=== PATIENT | male | born 1980 | race African-American/Black ===

== ENCOUNTER 2017-01-15 19:46 | Emergency (ER) | payer MEDICAID, MEDICARE ==
[2017-01-15] MEDS ORDERED: Bacitracin Zinc 1 Packet ONE (21:40)
== END 2017-01-15 21:40 | disposition home or self-care (01) ==
LOC: ERS 19:46
DX: L03.011 Cellulitis of right finger (principal); F17.210 Nicotine dependence, cigarettes, uncomplicated
CPT/HCPCS: 99283

== ENCOUNTER 2017-08-10 20:13 | Observation (INO) | payer MEDICARE ==
[2017-08-10 21:23] LABS: Bilirubin Negative (Negative); Blood, Urine Negative (Negative); Clarity CLEAR (Clear); Glucose, Urine (Dipstick) >=1000 mg/dL (Negative); Leukocyte Small (Negative); Nitrite Negative (Negative); Protein, Urine (Dipstick) Negative (Neg-Trace); Specific Gravity, Urine 1.027 (1.002-1.036); pH, Urine 5.5 (5.0-9.0)
[2017-08-10 21:36] LABS: Bacteria/HPF Rare-Few HPF (None Seen); RBC/HPF 0-3 HPF (0-3); Squamous Epithelial 0-3 HPF (0-3)
[2017-08-10 21:37] LABS: Hyaline Casts/LPF NONE SEEN LPF (0-3 Hyaline)
[2017-08-11 00:06] LABS: #Basophils 0.1 thou/uL (0.0-0.2); #Eosinphils 0.4 thou/uL (0.0-0.7); #Lymphocytes 2.2 thou/uL (1.20-3.40); #Monocytes 0.7 thou/uL (0.11-0.59); #Neutrophils 8.2 thou/uL (1.40-6.50); %Basophils 0.7 % (0.0-1.0); %Eosinophils 3.4 % (0.0-10.0); %Lymphocytes 19.1 % (21.0-51.0); %Monocytes 6.3 % (0.0-10.0); %Neutrophils 70.6 % (42.0-75.0); Hemoglobin 13.9 g/dL (14.0-18.0); Mean Corpuscular HGB CONC 35.1 g/dL (32.0-36.0); Mean Corpuscular Hemoglobin 30.5 pg (27.0-31.0); Mean Corpuscular Volume 86.9 fl (80.0-94.0); Mean Platelet Volume 8.1 fL (7.4-10.4); Platelet Count 278 thou/uL (130-400); RBC Distribution Width 12.6 % (11.5-14.5); Red Blood Cell (RBC) Count 4.55 mill/uL (4.70-6.10); White Blood Cell (WBC) Count 11.5 thou/uL (4.8-10.8)
[2017-08-11 00:45] LABS: ALT (SGPT) 18 U/L (8-55); AST (SGOT) 17 U/L (5-34); Albumin 4.3 g/dL (3.5-5.0); Alkaline Phosphatase 105 U/L (40-150); Anion Gap 13 mmol/L (10-20); BUN (Urea Nitrogen) 16 mg/dL (8.9-20.6); Bilirubin, Total 0.3 mg/dL (0.2-1.2); Calc. Creatinine Clearance 0 mL/min (70-130); Calcium 9.8 mg/dL (7.8-10.44); Carbon Dioxide 23 mmol/L (22-29); Chloride 94 mmol/L (98-107); Estimated GFR-MDRD 52; Globulin 4.4 g/dL (2.4-3.5); Glucose 755 mg/dL (70-105); Potassium 4.9 mmol/L (3.5-5.1); Protein, Total 8.7 g/dL (6.0-8.3); Sodium 125 mmol/L (136-145)
[2017-08-11] MEDS ORDERED: Insulin Regular 300 UNITS/3 ML VIAL ONE (00:56)
[2017-08-11] MEDS ORDERED: Clindamycin/D5W 900 mg/50 ml Premix Bag ONE (01:31)
--- NOTE | 2017-08-11 02:00 | PDOC.FPRHP ---
- History of Present Illness Chief Complaint: Armpit Pain History of Present Illness: 37 yo Male came in with chief complaint of L. arm infection. Pt also reported having some [place] of growth underneath his foreskin. He is uncircumcised. When came in labs were checked and found to have blood glucose of 700. Pt reports the last couple of months having to pee a lot more frequently. He also has noticed weight loss. Infection of his foreskin has been happening for the last couple weeks. Went to the [facility] on Monday where they px clotrimizole but he never got it filled. The last week he has developed a painful bump underneath his left armpit. Denies any chest pain or SOB. Denies any other recent illness or fever or chills. Denies any N/v/d/c. - Allergies/Adverse Reactions Allergies Allergy/AdvReac Type Severity Reaction Status Date / Time No Known Allergies Allergy Verified 08/11/17 02:34 - Home Medications Medication Instructions Recorded Confirmed Type No Known [No Known] 08/11/17 08/11/17 History - History PMHx: None PSHx: None FHx: Mom: Diabetes Social: 1ppd for 20 years, Occasional Alcohol use- 4 beers at a time, No illicit drug use - Review of Systems General: reports: weight/appetite/sleep changes (Noticed weight loss last few months). denies: fever/chills, night sweats, fatigue Eyes: denies: eye pain, vision changes ENT: denies: nasal congestion, rhinorrhea Respiratory: denies: cough, congestion, shortness of breath, exercise intolerance Cardiovascular: denies: chest pain, palpitation, edema, paroxysmal nocturnal dyspnea, orthopnea, other Gastrointestinal: denies: nausea, vomiting, diarrhea, constipation, abdominal pain, GI bleeding Genitourinary: reports: other (Has increased episodes of going to bathroom. Fungal material noted underneath foreskin. Irritating and hurts. No penile discharge noted). denies: incontinence, dysuria, polyuria, discharge Skin: reports: other (Has small lump under armpit painful.). denies: rashes, lesions, jaundice, itching Musculoskeletal: denies: pain, tenderness, stiffness, swelling, arthritis/ arthralgias Neurological: reports: numbness (reports some numbness in his hands and feet). denies: syncope, seizure, weakness Psychological: denies: anxiety, depression - Vital signs BP: [130/69] HR: [75] RR: [16] Tmax: [98.8] Pox: [97]% on [RA] Wt: [119 kg] - Physical Exam Constitutional: NAD, awake, alert and oriented, well developed HEENT: normocephalic and atraumatic, EOMI, conjunctiva clear, no scleral icterus , TM's clear and intact, grossly normal hearing, normal nasal mucosa -HEENT: mucous membranes mildly dry. Neck: supple, trachea midline, no LAD, no JVD Chest: no-tender to palpation, no lesions Heart: RRR, normal S1/S2, no murmurs/rubs/gallops, pulses present, no edema Lungs: CTAB, no respiratory distress, good air movement, no rales/rhonchi, no wheezing Abdomen: soft, non-tender, bowel sounds present, no masses/distention, no hernias Musculoskeletal: normal structure, normal tone, ROM grossly normal Neurological: no focal deficit, normal sensation -Skin: White fungal material noted underneath foreskin. Unable to retract head of penis from foreskin due to infection. Small painfull bump noted under L. armpit. No head noted. No erythema noted. Heme/Lymphatic: no unusual bruising or bleeding, no purpura, no petechia Psychiatric: normal mood and affect, good judgment and insight, intact recent and remote memory FMR H&P: Results - Labs Result Diagrams: 08/10/17 00:00 08/11/17 09:09 Lab results: WBC 11.5 thou/uL (4.8-10.8) H 08/10/17 00:00 Hgb 13.9 g/dL (14.0-18.0) L 08/10/17 00:00 Hct 39.6 % (42.0-52.0) L 08/10/17 00:00 MCV 86.9 fl (80.0-94.0) 08/10/17 00:00 Plt Count 278 thou/uL (130-400) 08/10/17 00:00 Neutrophils % 70.6 % (42.0-75.0) 08/10/17 00:00 Sodium 125 mmol/L (136-145) L 08/10/17 00:00 Potassium 4.9 mmol/L (3.5-5.1) 08/10/17 00:00 Chloride 94 mmol/L (98-107) L 08/10/17 00:00 Carbon Dioxide 23 mmol/L (22-29) 08/10/17 00:00 BUN 16 mg/dL (8.9-20.6) 08/10/17 00:00 Creatinine 1.80 mg/dL (0.6-1.3) H 08/10/17 00:00 Glucose 755 mg/dL (70-105) H* 08/10/17 00:00 Calcium 9.8 mg/dL (7.8-10.44) 08/10/17 00:00 Total Bilirubin 0.3 mg/dL (0.2-1.2) 08/10/17 00:00 AST 17 U/L (5-34) 08/10/17 00:00 ALT 18 U/L (8-55) 08/10/17 00:00 Alkaline Phosphatase 105 U/L (40-150) 08/10/17 00:00 Serum Total Protein 8.7 g/dL (6.0-8.3) H 08/10/17 00:00 Albumin 4.3 g/dL (3.5-5.0) 08/10/17 00:00 Urine Ketones Negative mg/dL (Negative) 08/10/17 21:17 Urine Blood Negative (Negative) 08/10/17 21:17 Urine Nitrite Negative (Negative) 08/10/17 21:17 Ur Leukocyte Esterase Small (Negative) H 08/10/17 21:17 Urine RBC 0-3 HPF (0-3) 08/10/17 21:17 Urine WBC 4-6 HPF (0-3) H 08/10/17 21:17 Ur Squamous Epith Cells 0-3 HPF (0-3) 08/10/17 21:17 Urine Bacteria Rare-Few HPF (None Seen) 08/10/17 21:17 FMR H&P: A/P - Problem List (1) Diabetes Current Visit: Yes Status: Acute Code(s): E11.9 - TYPE 2 DIABETES MELLITUS WITHOUT COMPLICATIONS Qualifiers: Diabetes mellitus type: type 2 Diabetes mellitus long term acute care registered nurse insulin use: without long term acute care registered nurse use Diabetes mellitus complication status: with hypoglycemia Diabetes mellitus complication detail: without coma Qualified Code(s): E11.649 - Type 2 diabetes mellitus with hypoglycemia without coma (2) CHANTAL (acute kidney injury) Current Visit: Yes Status: Acute Code(s): N17.9 - ACUTE KIDNEY FAILURE, UNSPECIFIED (3) Elevated BP without diagnosis of hypertension Current Visit: Yes Status: Acute Code(s): R03.0 - ELEVATED BLOOD-PRESSURE READING, W/O DIAGNOSIS OF HTN (4) Balanitis Current Visit: Yes Status: Acute Code(s): N48.1 - BALANITIS (5) Folliculitis Current Visit: Yes Status: Acute Code(s): L73.9 - FOLLICULAR DISORDER, UNSPECIFIED - Plan New onset DMII -Sugar elevated to 700's without signs of DKA. Given 10 units insulin in ER. -Accuchecks Q4hrs. Placed on Mild SSI. Started on Metformin 500 mg BID. -Rx Specialist consulted for education. -HgbA1c pending. -CC diet -Will need close f/u outpatient CHANTAL -Likely related to problem above. Reports being dehydrated -NS@150 mls/hr. -Daily BMP Folliculitis of Armpit -Painful small bump under armpit. No area of drainage noted. -Clindamycin for infection Balanitis -Fungal infection noted under penis -Clotrimizole cream FMR H&P: Upper Level - Pertinent history 37 yo AAM p/w L axillary pain and swelling. Over the last week, patient has developed a painful bump underneath his left armpit. No F/C. Also complaining of difficulty retracting his foreskin. On arrival in the ER, his BG was found to be >700. Reports frequent urination, thirst and weight loss over the last month or so. Issue with his foreskin has been going on for the past couple of weeks. Associated with white material underneath the foreskin. Pt to the [facility] ER on Monday where they prescribed him clotrimizole cream, but he never got it filled. Patient's family states that he has a poor diet and has smoked 1 PPD for around 20 years. He has a strong family history of diabetes as well. - Pertinent findings PE Gen: AAOx3, NAD, obese CV: RRR, no m/g/r Lungs: CTAB Abd: increased waist circumference, non-tender, +BS : partial phimosis with whitish debris noted under foreskin Ext: no c/c/e; subjective decreased sensation plantar aspects of b/l feet - Plan Date/Time: 08/11/17 2118 I, Tk Rushing MD, have evaluated this patient and agree with findings/plan as outlined by phd internship resident. Pertinent changes/additions are listed here. 37 yo AAM with: 1) New onset T2DM w/ hyperglycemia: place in observation to medical. No evidence of DKA or HHS. S/p 10 units regular insulin in ER. Start metformin and SSI. Diabetic education. A1c pending. Carb control diet with accuchecks q4h for now. Will need to establish care with PCP for close outpatient management. 2) CHANTAL: likely 2/2 dehydration from osmotic effect of hyperglycemia. Start IVF and recheck BMP in AM. 3) L axillary folliculitis barbae: cont. clindamycin 4) Balanitis: clotrimazole cream application Attending Addendum - Attending Addendum Date/Time: 08/11/17 0351 I personally evaluated the patient and discussed the management with Dr. Vela. I agree with the History, Examination, Assessment and Plan documented above with any addition or exceptions noted below. The patient presents with newly diagnosed diabetes with glucose over 700. He also has folliculitis and ballanitis. Will treat with antibiotics, fungal cream. Start metformin. Diabetic diet counseling, will teach how to check sugars. Cover with sliding scale insulin.
[2017-08-11 02:16] LABS: Hemoglobin A1c 10.3 % (4.0-6.0)
[2017-08-11] MEDS ORDERED: Dextrose 50% Abboject 50 ML SYRINGE SLOW IVP PRN (02:32)
[2017-08-11] MEDS ORDERED: Dextrose 5% in Water 1,000 ML IV PRN (02:32)
[2017-08-11] MEDS ORDERED: Ondansetron HCl/PF 4 MG/2 ML Vial IVP PRN ×2 (02:32)
[2017-08-11] MEDS ORDERED: Acetaminophen 650 MG Suppository PR PRN (02:32)
[2017-08-11] MEDS ORDERED: Ondansetron ODT 4 MG TAB SL PRN (02:32)
[2017-08-11] MEDS ORDERED: Ondansetron ODT 4 MG TAB PO PRN (02:32)
[2017-08-11] MEDS ORDERED: Acetaminophen 325 MG TAB PO PRN ×2 (02:32)
[2017-08-11] MEDS: Sodium Chloride 0.9% 1,000 ML IV SCH ×3 (03:20→17:16)
[2017-08-11 04:29] VITALS: BMI 37.0
[2017-08-11] MEDS: traMADol HCl 50 MG TAB PO PRN ×2 (05:10→21:05)
[2017-08-11] MEDS: Clindamycin 150 MG CAP PO SCH ×3 (05:10→17:14)
[2017-08-11] MEDS: HumaLOG 300 UNITS/3 ML VIAL SC PRN ×4 (06:50→21:12)
[2017-08-11] MEDS ORDERED: Clindamycin/D5W 900 MG in Premix Bag 1 BAG IVPB SCH (08:00)
[2017-08-11] MEDS: metFORMIN 500 MG TAB PO SCH ×2 (08:53→17:14)
[2017-08-11] MEDS ORDERED: Clotrimazole 1% Cream 15 GM TUBE TOP SCH (09:00)
[2017-08-11 09:58] LABS: Anion Gap 10 mmol/L (10-20); BUN (Urea Nitrogen) 11 mg/dL (8.9-20.6); Calc. Creatinine Clearance 156 mL/min (70-130); Calcium 9.4 mg/dL (7.8-10.44); Carbon Dioxide 23 mmol/L (22-29); Chloride 105 mmol/L (98-107); Estimated GFR-MDRD 87; Glucose 319 mg/dL (70-105); Potassium 4.1 mmol/L (3.5-5.1); Sodium 134 mmol/L (136-145)
[2017-08-11] MEDS: Clotrimazole 1 % Cream 30 GM TUBE TOP SCH (10:32)
[2017-08-12] MEDS: Clindamycin 150 MG CAP PO SCH ×2 (00:32→05:47)
[2017-08-12] MEDS: Sodium Chloride 0.9% 1,000 ML IV SCH ×2 (00:34→05:10)
[2017-08-12] MEDS ORDERED: Lidocaine 2% Jelly 5 ML TUBE TOP PRN (01:26)
[2017-08-12] MEDS ORDERED: Ketorolac Tromethamine 30 MG/ML VIAL IVP SCH (01:30)
[2017-08-12] MEDS: HumaLOG 300 UNITS/3 ML VIAL SC PRN (02:44)
--- NOTE | 2017-08-12 07:31 | PDOC.FM ---
- Subjective Subjective: Patient reports that he is doing well this AM. He is tolerating PO well. He denies any N/V. - Objective MAR Reviewed: Yes Vital Signs & Weight: Vital Signs (12 hours) Temp Pulse Resp BP BP Pulse Ox 08/12/17 04:00 98.1 F 62 18 101/62 98 08/12/17 00:00 98.2 F 71 18 112/69 98 08/11/17 20:00 98.3 F 83 18 115/66 98 08/11/17 19:59 98.3 F 81 18 115/66 98 Weight Admit Weight 124.029 kg Weight 124.029 kg I&O: 08/11/17 08/12/17 08/13/17 06:59 06:59 06:59 Intake Total 150 997 Output Total 325 2100 Balance -175 -1103 Result Diagrams: 08/10/17 00:00 08/11/17 09:09 <Lula Lam - Last Filed: 08/12/17 07:29> - Objective Vital Signs & Weight: Vital Signs (12 hours) Temp Pulse Resp BP Pulse Ox 08/12/17 07:33 98.4 F 67 16 118/82 98 08/12/17 04:00 98.1 F 62 18 101/62 98 08/12/17 00:00 98.2 F 71 18 112/69 98 Weight Admit Weight 273 lb 7 oz Weight 273 lb 7 oz I&O: 08/11/17 08/12/17 08/13/17 06:59 06:59 06:59 Intake Total 150 997 Output Total 325 2625 Balance -175 -1621 Result Diagrams: 08/10/17 00:00 08/11/17 09:09 <David Pete - Last Filed: 08/12/17 10:35> Phys Exam - Physical Examination Constitutional: NAD HEENT: moist MMs Respiratory: no wheezing, no rales, no rhonchi, clear to auscultation bilateral Cardiovascular: RRR, no significant murmur, no rub Gastrointestinal: soft, non-tender, no distention, positive bowel sounds Musculoskeletal: no edema, pulses present Neurological: non-focal, moves all 4 limbs Psychiatric: normal affect, A&O x 3 Deviation from normal: L axilla erythema and tenderness <Lula Lam - Last Filed: 08/12/17 07:29> Dx/Plan (1) Diabetes Code(s): E11.9 - TYPE 2 DIABETES MELLITUS WITHOUT COMPLICATIONS Status: Acute QualifierTitle: Diabetes mellitus type: type 2 Diabetes mellitus nursing home insulin use: without oil heaterman use Diabetes mellitus complication status : with hyperglycemia Qualified Code(s): E11.65 - Type 2 diabetes mellitus with hyperglycemia (2) CHANTAL (acute kidney injury) Code(s): N17.9 - ACUTE KIDNEY FAILURE, UNSPECIFIED Status: Acute (3) Balanitis Code(s): N48.1 - BALANITIS Status: Acute (4) Folliculitis Code(s): L73.9 - FOLLICULAR DISORDER, UNSPECIFIED Status: Acute (5) Elevated BP without diagnosis of hypertension Code(s): R03.0 - ELEVATED BLOOD-PRESSURE READING, W/O DIAGNOSIS OF HTN Status : Acute - Plan Plan: New onset DMII Blood Sugar elevated to 700's without signs of DKA. Given 10 units insulin in ER. HgA1c found to be 10.3. Glucose has remained elevated to the 200s-300s, with SSI and metformin. The difficulty in controlling the blood glucose could be due to the folliculitis. -Accuchecks Q4hrs. Placed on Mild SSI. Started on Metformin 500 mg BID. -Talent Assistant consulted for education. -CC diet -Will need close f/u outpatient -Pt has already bought himself a glucometer, lancets, and test strips CHANTAL -Likely related to problem above. Reports being dehydrated. Has improved with fluids -NS@150 mls/hr. -Daily BMP Folliculitis of L Axilla Painful small bump under axilla. No area of drainage noted. -Clindamycin for infection Balanitis Fungal infection noted under penis -Clotrimizole cream <Lula Lam - Last Filed: 08/12/17 07:29> Attending Addendum - Attending Addendum Date/Time: 08/12/17 0486 I personally evaluated the patient and discussed the management with Dr. Lam I agree with the History, Examination, Assessment and Plan documented above with any addition or exceptions noted below. The patient's blood sugars have improved from admission. He has received diabetes education and will continue to monitor his glucose outpatient. We will discharge him today on metformin with plans to titrate it up to 1000mg BID. He will arrange an outpatient f/u appointment at [facility] within one week. We will continue abx for L axilla folliculitis. <David Pete - Last Filed: 08/12/17 10:35>
[2017-08-12 07:36] VITALS: BP 118/82; TEMP 98.4
[2017-08-12] MEDS: Clotrimazole 1 % Cream 30 GM TUBE TOP SCH (10:55)
[2017-08-12] MEDS: metFORMIN 500 MG TAB PO SCH (10:55)
--- NOTE | 2017-08-13 20:01 | DIS-2 ---
DATE OF ADMISSION: 08/11/2017 DATE OF DISCHARGE: 08/12/2017 ADMITTING RESIDENT: Ty Vela M.D. DISCHARGE RESIDENT: Lula Lam M.D. ADMITTING ATTENDING: Bruna Walker M.D. DISCHARGE ATTENDING: David Pete M.D. CONSULTATIONS: None. PROCEDURES: None. PRIMARY DIAGNOSES: 1. New onset uncontrolled diabetes type 2. 2. Left axilla folliculitis. 3. Acute kidney injury. 4. Balanitis. 5. Elevated blood pressure without diagnosis of hypertension. DISCHARGE MEDICATIONS: 1. Metformin 500 mg p.o. b.i.d. with meals with instructions to titrate up to 1000 mg p.o. b.i.d. wi meals, within the next few weeks. 2. Clotrimazole 1% cream 1 gram topical daily. 3. Clindamycin 300 mg p.o. q.6. for 6 days. DISCONTINUED MEDICATIONS: None. HISTORY OF PRESENT ILLNESS AND HOSPITAL COURSE: This is a 37-year-old male with no known past medica l history who presented due to left arm and hip pain. The patient was found to have a blood sugar of 755 and hemoglobin A1c of 10.3. The patient had no known diagnosis of diabetes at this time. The p atient also had an acute kidney injury with an initial creatinine of 1.8. The patient was treated wi 10 units of insulin in the ER and the blood sugar improved to the 300s. The patient was started o n metformin and sliding scale insulin was used throughout his hospitalization. The patient was also given IV fluids to help with the acute kidney injury. The patient's creatinine improved to 1.14. Th e patient also was found to have a balanitis that was treated with clotrimazole cream and a left axil la folliculitis that was treated with clindamycin. The patient was given instructions as far as how to check his blood sugar and was asked to keep the log of his fasting blood glucoses to take to his n ext doctor's appointment. The patient was agreeable to establishing at [facility] for his primary care moving forward. The patient was also given the opportunity to discuss dietitian good dietary habits for diabetes. The patient was motivated to make changes in his life and had already purchased a glucometer, lancets and test strips before he had even been discharged f rom the hospital. DISPOSITION: Stable. DISCHARGE INSTRUCTIONS: 1. Location: Home. 2. Diet: Diabetic. 3. Activity: As tolerated. 4. Follow up with [facility] within 1 week.
[2017-08-15 11:26] LABS: CO2 Tension (PvCO2) 40.4 mmHg (41.0-51.0); O2 Tension (PvO2) 41.4 mmHg (35.0-45.0); pH (Venous) 7.383 (7.35-7.45); vO2 Saturation-calc 75.9 % (94-98)
[2017-08-15 11:27] LABS: Calcium, Ionized 1.03 mmol/L (1.12-1.32); Potassium 5.2 mmol/L (3.4-4.7); T. Carbon Dioxide 25.3 mmol/L (1.0-85.0)
== END 2017-08-12 11:52 | disposition home or self-care (01) ==
LOC: ERS 20:13 → T4-A 08-11 02:20
PROVIDERS: ADMIT Family Medicine; ATTEND Family Medicine
DX: L73.9 Follicular disorder, unspecified (principal); N17.9 Acute kidney failure, unspecified; E11.9 Type 2 diabetes mellitus without complications; N48.1 Balanitis; R03.0 Elevated blood-pressure reading, without diagnosis of hypertension
CPT/HCPCS: 80048; 80053; 82010; 82330; 82435; 82803; 82962 ×2; 83036; 84132; 85025; 87040; 87086; 93005; 96361 ×3; 96365; 96375 ×2; 99285; G0378; 36415; 36416; 81003; 81015; A4216; J1815; J1885; J3490

== ENCOUNTER 2018-05-20 21:17 | Emergency (ER) | payer MEDICARE, MEDICAID ==
[2018-05-20 22:13] LABS: #Basophils 0.1 thou/uL (0.0-0.2); #Eosinphils 0.4 thou/uL (0.0-0.7); #Monocytes 1.1 thou/uL (0.11-0.59); #Neutrophils 8.5 thou/uL (1.40-6.50); %Basophils 0.6 % (0.0-1.0); %Eosinophils 3.5 % (0.0-10.0); %Lymphocytes 16.7 % (21.0-51.0); %Monocytes 9.1 % (0.0-10.0); %Neutrophils 70.2 % (42.0-75.0); Hemoglobin 13.6 g/dL (14.0-18.0); Mean Corpuscular HGB CONC 34.3 g/dL (32.0-36.0); Mean Corpuscular Hemoglobin 30.3 pg (27.0-31.0); Mean Corpuscular Volume 88.1 fL (78.0-98.0); Mean Platelet Volume 7.4 fL (7.4-10.4); Platelet Count 278 thou/uL (130-400); RBC Distribution Width 12.5 % (11.5-14.5); White Blood Cell (WBC) Count 12.1 thou/uL (4.8-10.8)
[2018-05-20 22:29] LABS: Bilirubin Negative (Negative); Blood, Urine Negative (Negative); Clarity CLEAR (Clear); Glucose, Urine (Dipstick) Negative (Negative); Leukocyte Trace (Negative); Nitrite Negative (Negative); Protein, Urine (Dipstick) Negative (Neg-Trace); Specific Gravity, Urine 1.014 (1.002-1.036); pH, Urine 6.5 (5.0-9.0)
[2018-05-20 22:30] LABS: Bacteria/HPF None Seen HPF (None Seen); Hyaline Casts/LPF 0-3 HYALINE CAST LPF (0-3 Hyaline); RBC/HPF 0-3 HPF (0-3); Squamous Epithelial 0-3 HPF (0-3); WBC/HPF 0-3 HPF (0-3)
[2018-05-20 22:34] LABS: ALT (SGPT) 14 U/L (8-55); AST (SGOT) 12 U/L (5-34); Albumin 4.3 g/dL (3.5-5.0); Alkaline Phosphatase 67 U/L (40-150); Anion Gap 14 mmol/L (10-20); BUN (Urea Nitrogen) 16 mg/dL (8.9-20.6); Bilirubin, Total 0.4 mg/dL (0.2-1.2); Calc. Creatinine Clearance 0 mL/min (70-130); Carbon Dioxide 21 mmol/L (22-29); Chloride 110 mmol/L (98-107); Estimated GFR-MDRD 58; Globulin 3.1 g/dL (2.4-3.5); Glucose 95 mg/dL (70-105); Potassium 4.3 mmol/L (3.5-5.1); Protein, Total 7.4 g/dL (6.0-8.3); Sodium 141 mmol/L (136-145)
== END 2018-05-20 23:15 | disposition home or self-care (01) ==
LOC: ERS 21:17
DX: E11.40 Type 2 diabetes mellitus with diabetic neuropathy, unspecified (principal); F17.210 Nicotine dependence, cigarettes, uncomplicated; N19 Unspecified kidney failure
CPT/HCPCS: 36416; 80053; 81003; 81015; 82010; 85025; 96360

== ENCOUNTER 2018-05-30 18:48 | Emergency (ER) | payer MEDICARE, MEDICAID ==
[2018-05-30] MEDS ORDERED: Metoclopramide HCl 10 MG/2 ML VIAL ONE (19:28)
[2018-05-30] MEDS ORDERED: Ketorolac Tromethamine 30 MG/ML VIAL ONE (19:28)
[2018-05-30] MEDS ORDERED: diphenhydrAMINE 50 MG/ML VIAL ONE (19:28)
== END 2018-05-30 22:01 | disposition home or self-care (01) ==
LOC: ERS 18:48
DX: R51 Headache (principal); E11.9 Type 2 diabetes mellitus without complications; F17.210 Nicotine dependence, cigarettes, uncomplicated; Z79.84 Long term (current) use of oral hypoglycemic drugs; Z79.899 Other long term (current) drug therapy
CPT/HCPCS: 96361; 96374; 96375; J1200; J1885; J2765

== ENCOUNTER 2018-12-14 00:17 | Emergency (ER) | payer MEDICARE, MEDICAID ==
[2018-12-14 01:18] LABS: Bacteria/HPF None Seen HPF (None Seen); Bilirubin Negative (Negative); Blood, Urine Negative (Negative); Clarity Clear (Clear); Glucose, Urine (Dipstick) Greater than 1000 mg/dL (Negative); Leukocyte 250 Leu/uL (Negative); Nitrite Negative (Negative); Protein, Urine (Dipstick) Negative (Neg-Trace); RBC/HPF 0-3 HPF (0-3); Urobilinogen Normal mg/dL (Less than 2)
[2018-12-14] MEDS ORDERED: Fluconazole 100 MG TAB PO SCH (03:45)
[2018-12-14 03:56] LABS: #Basophils 0.1 thou/uL (0.0-0.2); #Eosinphils 0.3 thou/uL (0.0-0.7); #Lymphocytes 2.5 thou/uL (1.20-3.40); #Monocytes 0.8 thou/uL (0.11-0.59); #Neutrophils 6.8 thou/uL (1.40-6.50); %Basophils 0.6 % (0.0-1.0); %Eosinophils 3.1 % (0.0-10.0); %Lymphocytes 23.5 % (21.0-51.0); %Monocytes 7.6 % (0.0-10.0); %Neutrophils 65.2 % (42.0-75.0); Hemoglobin 14.1 g/dL (14.0-18.0); Mean Corpuscular HGB CONC 34.5 g/dL (32.0-36.0); Mean Corpuscular Hemoglobin 29.9 pg (27.0-31.0); Mean Corpuscular Volume 86.9 fL (78.0-98.0); Mean Platelet Volume 7.9 fL (7.4-10.4); Platelet Count 281 thou/uL (130-400); RBC Distribution Width 12.8 % (11.5-14.5); White Blood Cell (WBC) Count 10.5 thou/uL (4.8-10.8)
[2018-12-14 04:15] LABS: ALT (SGPT) 23 U/L (8-55); AST (SGOT) 14 U/L (5-34); Albumin 4.4 g/dL (3.5-5.0); Alkaline Phosphatase 86 U/L (40-150); Anion Gap 11 mmol/L (10-20); BUN (Urea Nitrogen) 16 mg/dL (8.9-20.6); Bilirubin, Total 0.4 mg/dL (0.2-1.2); Calc. Creatinine Clearance 0 mL/min (70-130); Calcium 9.8 mg/dL (7.8-10.44); Carbon Dioxide 26 mmol/L (22-29); Chloride 97 mmol/L (98-107); Estimated GFR-MDRD 58; Potassium 4.3 mmol/L (3.5-5.1); Protein, Total 7.4 g/dL (6.0-8.3); Sodium 130 mmol/L (136-145)
[2018-12-14 04:19] LABS: Glucose 554 mg/dL (70-105)
[2018-12-16 18:57] LABS: Chlam.trachomatis by PCR,Urine Not Detected (NotDetected)
== END 2018-12-14 05:42 | disposition home or self-care (01) ==
LOC: ERS 00:17
DX: N48.1 Balanitis (principal); E11.65 Type 2 diabetes mellitus with hyperglycemia; I10 Essential (primary) hypertension; F17.210 Nicotine dependence, cigarettes, uncomplicated; Z79.899 Other long term (current) drug therapy; Z79.84 Long term (current) use of oral hypoglycemic drugs
CPT/HCPCS: 36416; 80053; 81003; 81015; 84484; 85025; 87491; 87591; 93005

== ENCOUNTER 2018-12-30 20:47 | Emergency (ER) | payer MEDICARE, MEDICAID ==
[2018-12-30 21:11] LABS: Bacteria/HPF None Seen HPF (None Seen); Bilirubin Negative (Negative); Blood, Urine Negative (Negative); Clarity Clear (Clear); Glucose, Urine (Dipstick) Greater than 1000 mg/dL (Negative); Leukocyte 25 Leu/uL (Negative); Mucous/LPF Rare LPF (<2+); Nitrite Negative (Negative); Protein, Urine (Dipstick) Negative (Neg-Trace); RBC/HPF 0-3 HPF (0-3); Squamous Epithelial 0-3 HPF (0-3); Urobilinogen Normal mg/dL (Less than 2)
[2018-12-30 21:14] LABS: #Basophils 0.1 thou/uL (0.0-0.2); #Eosinphils 0.3 thou/uL (0.0-0.7); #Monocytes 0.7 thou/uL (0.11-0.59); #Neutrophils 7.2 thou/uL (1.40-6.50); %Basophils 0.9 % (0.0-1.0); %Eosinophils 2.8 % (0.0-10.0); %Lymphocytes 19.1 % (21.0-51.0); %Monocytes 6.5 % (0.0-10.0); %Neutrophils 70.6 % (42.0-75.0); Hemoglobin 14.4 g/dL (14.0-18.0); Mean Corpuscular HGB CONC 34.6 g/dL (32.0-36.0); Mean Corpuscular Hemoglobin 29.9 pg (27.0-31.0); Mean Corpuscular Volume 86.3 fL (78.0-98.0); Mean Platelet Volume 8.1 fL (7.4-10.4); Platelet Count 297 thou/uL (130-400); RBC Distribution Width 12.4 % (11.5-14.5); Red Blood Cell (RBC) Count 4.81 mill/uL (4.70-6.10); White Blood Cell (WBC) Count 10.2 thou/uL (4.8-10.8)
[2018-12-30 21:34] LABS: ALT (SGPT) 19 U/L (8-55); AST (SGOT) 10 U/L (5-34); Albumin 4.7 g/dL (3.5-5.0); Alkaline Phosphatase 100 U/L (40-150); Anion Gap 14 mmol/L (10-20); BUN (Urea Nitrogen) 15 mg/dL (8.9-20.6); Bilirubin, Total 0.3 mg/dL (0.2-1.2); Calc. Creatinine Clearance 0 mL/min (70-130); Calcium 10.6 mg/dL (7.8-10.44); Carbon Dioxide 21 mmol/L (22-29); Chloride 100 mmol/L (98-107); Estimated GFR-MDRD 52; Globulin 3.4 g/dL (2.4-3.5); Glucose 530 mg/dL (70-105); Potassium 4.3 mmol/L (3.5-5.1); Protein, Total 8.1 g/dL (6.0-8.3); Sodium 131 mmol/L (136-145)
--- NOTE | 2018-12-30 22:28 | RAD ---
Portable frontal chest radiograph: 12/30/2018 COMPARISON: None HISTORY: Hyperglycemia FINDINGS: Lungs are clear. Heart and mediastinal contours appear within normal limits. IMPRESSION: No acute findings.
== END 2018-12-30 23:45 | disposition home or self-care (01) ==
LOC: ERS 20:47
DX: E11.65 Type 2 diabetes mellitus with hyperglycemia (principal); I10 Essential (primary) hypertension; F17.210 Nicotine dependence, cigarettes, uncomplicated; Z79.84 Long term (current) use of oral hypoglycemic drugs
CPT/HCPCS: 36415; 36416; 71045; 80053; 81003; 81015; 84484; 85025; 93005; 96360; 96361

== ENCOUNTER 2019-04-07 03:11 | Emergency (ER) | payer MEDICARE, MEDICAID ==
[2019-04-07 03:50] LABS: Bacteria/HPF None Seen HPF (None Seen); Bilirubin Negative (Negative); Blood, Urine 1+ (Negative); Clarity Clear (Clear); Glucose, Urine (Dipstick) Greater than 1000 mg/dL (Negative); Leukocyte 500 Leu/uL (Negative); Nitrite Negative (Negative); Protein, Urine (Dipstick) Negative (Neg-Trace); Squamous Epithelial 0-3 HPF (0-3); Urobilinogen Normal mg/dL (Less than 2); WBC/HPF Greater than 50 HPF (0-3)
[2019-04-07] MEDS ORDERED: Sterile Water 10 ML ONE (03:58)
[2019-04-07] MEDS ORDERED: cefTRIAXone\\ROCEPHIN 250 MG VIAL ONE (03:58)
[2019-04-08 06:28] LABS: Chlam.trachomatis by PCR,Urine Not Detected (NotDetected)
== END 2019-04-07 04:20 | disposition home or self-care (01) ==
LOC: ERS 03:11
DX: N39.0 Urinary tract infection, site not specified (principal); N48.1 Balanitis; G62.9 Polyneuropathy, unspecified; E11.9 Type 2 diabetes mellitus without complications; I10 Essential (primary) hypertension; F17.210 Nicotine dependence, cigarettes, uncomplicated
CPT/HCPCS: 36416; 81003; 81015; 87491; 87591; 96372; 99284; J0696

== ENCOUNTER 2019-09-26 17:04 | Emergency (ER) | payer MEDICARE, MEDICAID ==
[2019-09-26 17:47] LABS: #Basophils 0.1 thou/uL (0.0-0.2); #Eosinphils 0.3 thou/uL (0.0-0.7); #Monocytes 0.5 thou/uL (0.11-0.59); #Neutrophils 4.9 thou/uL (1.40-6.50); %Basophils 1.1 % (0.0-1.0); %Eosinophils 3.8 % (0.0-10.0); %Monocytes 6.9 % (0.0-10.0); %Neutrophils 62.3 % (42.0-75.0); Hemoglobin 12.8 g/dL (14.0-18.0); Mean Corpuscular HGB CONC 33.6 g/dL (32.0-36.0); Mean Corpuscular Hemoglobin 29.3 pg (27.0-31.0); Mean Corpuscular Volume 87.3 fL (78.0-98.0); Platelet Count 264 thou/uL (130-400); RBC Distribution Width 12.3 % (11.5-14.5); Red Blood Cell (RBC) Count 4.36 mill/uL (4.70-6.10); White Blood Cell (WBC) Count 7.8 thou/uL (4.8-10.8)
[2019-09-26 18:14] LABS: ALT (SGPT) 18 U/L (8-55); AST (SGOT) 14 U/L (5-34); Alkaline Phosphatase 71 U/L (40-110); Anion Gap 11 mmol/L (10-20); BUN (Urea Nitrogen) 10 mg/dL (8.9-20.6); Bilirubin, Total Less than 0.2 mg/dL (0.2-1.2); Calc. Creatinine Clearance 0 mL/min (70-130); Calcium 9.4 mg/dL (7.8-10.44); Carbon Dioxide 21 mmol/L (22-29); Chloride 105 mmol/L (98-107); Estimated GFR-MDRD 78; Glucose 456 mg/dL (70-105); Potassium 4.1 mmol/L (3.5-5.1); Sodium 133 mmol/L (136-145)
--- NOTE | 2019-09-26 20:50 | RAD ---
EXAM: CHEST ONE VIEW HISTORY: Bilateral lower extremity edema/swelling for 2 days. COMPARISON: 12/30/2018 FINDINGS: The cardiac silhouette and pulmonary vasculature is within normal limits. The lungs are clear. The os seous structures are intact. Chest is stable compared to prior study. IMPRESSION: No acute cardiopulmonary process.
== END 2019-09-26 22:10 | disposition home or self-care (01) ==
LOC: ERS 17:04
DX: R60.0 Localized edema (principal); E11.9 Type 2 diabetes mellitus without complications; F17.210 Nicotine dependence, cigarettes, uncomplicated; Z79.4 Long term (current) use of insulin
CPT/HCPCS: 36415; 71045; 80053; 83880; 85025

== ENCOUNTER 2019-10-28 09:43 | Emergency (ER) | payer MEDICARE, MEDICAID, OTHER ==
[2019-10-29 14:31] LABS: SARS-CoV-2 MS2 Positive; SARS-CoV-2 N Gene Negative; SARS-CoV-2 S Gene Negative; SARS-CoV-2 orf1ab Negative
== END 2019-10-28 10:39 | disposition home or self-care (01) ==
LOC: ERS 09:43
DX: Z20.828 Contact with and (suspected) exposure to other viral communicable diseases (principal); E11.9 Type 2 diabetes mellitus without complications; F17.210 Nicotine dependence, cigarettes, uncomplicated; Z79.4 Long term (current) use of insulin
CPT/HCPCS: 99283; U0003; 87635

== ENCOUNTER 2019-11-04 12:16 | Emergency (ER) | payer MEDICARE, MEDICAID, OTHER ==
[2019-11-05 14:01] LABS: SARS-CoV-2 MS2 Positive; SARS-CoV-2 N Gene Negative; SARS-CoV-2 S Gene Negative; SARS-CoV-2 by NAA Not Detected (NotDetected); SARS-CoV-2 orf1ab Negative
== END 2019-11-04 12:27 | disposition home or self-care (01) ==
LOC: ERS 12:16
DX: U07.1 COVID-19 (principal); E11.9 Type 2 diabetes mellitus without complications; F17.210 Nicotine dependence, cigarettes, uncomplicated
CPT/HCPCS: 99283; U0003; 87635

== ENCOUNTER 2020-01-15 14:30 | Emergency (ER) | payer MEDICARE, MEDICAID ==
[2020-01-15 15:45] LABS: #Eosinphils 0.2 thou/uL (0.0-0.7); #Lymphocytes 1.9 thou/uL (1.20-3.40); #Monocytes 0.5 thou/uL (0.11-0.59); #Neutrophils 4.3 thou/uL (1.40-6.50); %Basophils 0.6 % (0.0-1.0); %Lymphocytes 27.6 % (21.0-51.0); %Monocytes 7.1 % (0.0-10.0); %Neutrophils 61.7 % (42.0-75.0); Hemoglobin 14.6 g/dL (14.0-18.0); Mean Corpuscular HGB CONC 34.3 g/dL (32.0-36.0); Mean Corpuscular Hemoglobin 29.9 pg (27.0-31.0); Mean Corpuscular Volume 87.1 fL (78.0-98.0); Mean Platelet Volume 8.5 fL (7.4-10.4); Platelet Count 291 thou/uL (130-400); RBC Distribution Width 12.2 % (11.5-14.5); Red Blood Cell (RBC) Count 4.88 mill/uL (4.70-6.10)
[2020-01-15 16:06] LABS: ALT (SGPT) 15 U/L (8-55); AST (SGOT) 12 U/L (5-34); Albumin 4.2 g/dL (3.5-5.0); Alkaline Phosphatase 77 U/L (40-110); Anion Gap 15 mmol/L (10-20); BUN (Urea Nitrogen) 15 mg/dL (8.9-20.6); Bilirubin, Total 0.5 mg/dL (0.2-1.2); Calc. Creatinine Clearance 0 mL/min (70-130); Calcium 9.4 mg/dL (7.8-10.44); Carbon Dioxide 20 mmol/L (22-29); Chloride 101 mmol/L (98-107); Estimated GFR-MDRD 65; Globulin 3.1 g/dL (2.4-3.5); Potassium 4.3 mmol/L (3.5-5.1); Protein, Total 7.3 g/dL (6.0-8.3); Sodium 132 mmol/L (136-145)
[2020-01-15 16:09] LABS: Glucose 623 mg/dL (70-105)
== END 2020-01-15 17:13 | disposition home or self-care (01) ==
LOC: ERS 14:30
DX: G56.01 Carpal tunnel syndrome, right upper limb (principal); E11.9 Type 2 diabetes mellitus without complications; F17.210 Nicotine dependence, cigarettes, uncomplicated
CPT/HCPCS: 36415; 36416; 80053; 82010; 85025; 99284

== ENCOUNTER 2020-04-21 16:23 | Emergency (ER) | payer MEDICARE, MEDICAID ==
[2020-04-22 05:56] LABS: SARS-CoV-2 MS2 Positive; SARS-CoV-2 N Gene Positive; SARS-CoV-2 S Gene Positive; SARS-CoV-2 by NAA DETECTED (NotDetected); SARS-CoV-2 orf1ab Positive
== END 2020-04-21 17:13 | disposition home or self-care (01) ==
LOC: ERS 16:23
DX: U07.1 COVID-19 (principal); E11.9 Type 2 diabetes mellitus without complications; F17.210 Nicotine dependence, cigarettes, uncomplicated
CPT/HCPCS: 99283; U0003; 87635

== ENCOUNTER 2022-01-17 11:39 | Emergency (ER) | payer MEDICARE, MEDICAID | END 2022-01-17 13:34 | disposition home or self-care (01) | LOC: ERS 11:39 | DX: G58.9 Mononeuropathy, unspecified (principal); M54.2 Cervicalgia; E11.9 Type 2 diabetes mellitus without complications; F17.210 Nicotine dependence, cigarettes, uncomplicated | CPT/HCPCS: 99283 ==

== ENCOUNTER 2022-12-20 04:19 | Emergency (ER) | payer MEDICAID, MEDICARE ==
[2022-12-20] MEDS ORDERED: Cyclobenzaprine 10 MG TAB ONE (06:04)
[2022-12-20] MEDS ORDERED: Ketorolac Tromethamine 30 MG/ML VIAL ONE (06:04)
== END 2022-12-20 06:55 | disposition home or self-care (01) ==
LOC: ERS 04:19
DX: M54.31 Sciatica, right side (principal); E11.65 Type 2 diabetes mellitus with hyperglycemia; E11.40 Type 2 diabetes mellitus with diabetic neuropathy, unspecified; F17.210 Nicotine dependence, cigarettes, uncomplicated
CPT/HCPCS: 96372; 99283; J1885

== ENCOUNTER 2025-03-05 00:29 | Emergency (ER) | payer SELFPAY ==
[2025-03-05] MEDS ORDERED: Metoclopramide HCl 10 MG (2 mL) VIAL ONE (01:27)
[2025-03-05] MEDS ORDERED: Dexamethasone 10 MG/ML VIAL ONE (01:28)
== END 2025-03-05 02:45 | disposition home or self-care (01) ==
LOC: ERS 00:29
DX: R51.9 Headache, unspecified (principal); E11.9 Type 2 diabetes mellitus without complications; F17.210 Nicotine dependence, cigarettes, uncomplicated
CPT/HCPCS: 70450; 96374; 96375; J1100; J2765